=== PATIENT | female | born 2000 | race Caucasian/White ===

== ENCOUNTER 2022-02-24 20:41 | Emergency (ER) | payer OTHER, SELFPAY ==
[2022-02-24 20:43] VITALS: BP 110/47; PULSE 80; RESP 18; TEMP 36.6; O2SAT 100; BMI 20.5
--- NOTE | 2022-02-24 20:56 | CT_ITS ---
EXAM: CT HEAD WITHOUT INTRAVENOUS CONTRAST CLINICAL INDICATION: trauma TECHNIQUE: Multiple axial images were obtained of the head without intravenous contrast. CTDIvol = ( 44.99 ) mGy, DLP = ( 779.24 ) mGycm This CT exam was performed using one or more of the following dose reduction techniques: automated exposure control, adjustment of the mA and/or kV according to patient size, and/or use of iterative reconstruction technique. This report was created using [employer] report generation technology. COMPARISON: None. FINDINGS: BRAIN AND EXTRA-AXIAL SPACES: Unremarkable. No intra- or extra-axial hemorrhage. No evidence of acute infarct. No intracranial mass or mass effect. There is preservation of the garcia/white matter interface. Posterior fossa structures are unremarkable. Ventricles are appropriate for age. No hydrocephalus. Basal cisterns are patent. BONES/JOINTS: Unremarkable. No discrete lytic or blastic abnormalities. SINUSES: Unremarkable as visualized. Clear. MASTOID AIR CELLS: Unremarkable. Clear. ORBITS: Visualized globes, extraocular muscles, optic nerves and retrobulbar fat appear unremarkable. CT/Brain/Head without Contrast IMPRESSION: Negative head/brain CT without intravenous contrast. Electronically Signed: Dedrick Pugh MD at 21:55 EDT ,
--- NOTE | 2022-02-24 20:56 | RAD_ITS ---
EXAM: XR THORACIC SPINE, 2 VIEWS CLINICAL INDICATION: trauma TECHNIQUE: Frontal and lateral views of the thoracic spine. This report was created using [employer] report generation technology. COMPARISON: None. FINDINGS: VERTEBRAE: Mild S-shaped curvature of the spine. Preserved vertebral body height. No fracture. No spondylolisthesis. No significant facet arthropathy. DISC SPACES: Unremarkable. Disc spaces are maintained. RAD/Thoracic Spine 2 Views IMPRESSION: No acute or healing fracture or malalignment. Electronically Signed: Dedrick Pugh MD at 22:27 EDT ,
--- NOTE | 2022-02-24 20:56 | CT_ITS ---
EXAM: CT CERVICAL SPINE WITHOUT INTRAVENOUS CONTRAST CLINICAL INDICATION: trauma TECHNIQUE: Helically acquired images were obtained of the cervical spine without intravenous contrast. 2D reformatted images were reviewed. CTDIvol = ( 13.25 ) mGy, DLP = ( 268.79 ) mGycm This CT exam was performed using one or more of the following dose reduction techniques: automated exposure control, adjustment of the mA and/or kV according to patient size, and/or use of iterative reconstruction technique. This report was created using [employer] report [employer] technology. COMPARISON: None. FINDINGS: VERTEBRAE: Unremarkable. No fracture. No traumatic subluxation. No discrete lytic or blastic abnormality. Normal alignment. Normal craniocervical junction and cervicothoracic junction. DISCS/SPINAL CANAL/NEURAL FORAMINA: Unremarkable. Disc heights are preserved. No critical stenosis. SOFT TISSUES: Unremarkable. No prevertebral soft tissue swelling. LYMPH NODES: Unremarkable. No cervical adenopathy. LUNG APICES: Unremarkable as visualized. Clear. CT/Spine Cervical without Contras IMPRESSION: No evidence of acute cervical spinal fracture or spondylolisthesis. Electronically Signed: Dedrick Pugh MD at 21:56 EDT ,
--- NOTE | 2022-02-24 20:56 | RAD_ITS ---
EXAM: XR LUMBOSACRAL SPINE, 2 OR 3 VIEWS CLINICAL INDICATION: trauma TECHNIQUE: Frontal and lateral views of the lumbar spine and sacrum. This report was created using [employer] report [employer] technology. COMPARISON: None. FINDINGS: VERTEBRAE: Unremarkable. Preserved vertebral body height. No fracture. No spondylolisthesis. Preservation of the normal lumbar lordosis. No significant facet arthropathy. DISC SPACES: No acute findings. Disc spaces are maintained. GASTROINTESTINAL TRACT: Unremarkable as visualized. Included bowel gas pattern is non-obstructive. RAD/Lumbar Spine 2 or 3 Views IMPRESSION: No evidence of lumbar spinal fracture or spondylolisthesis. Electronically Signed: Dedrick Pugh MD at 22:26 EDT ,
--- NOTE | 2022-02-24 21:00 | EDS_ITS ---
HPI HPI - Fall History of Present Illness Chief Complaint: Trauma Detail of Chief Complaint: Thrown from a horse to concrete. Informant: patient and friend Occured/Mechanism Occurred: Today and Hours Fall from Height (ft): From on top of a horse probably 4 to 6 feet in the air. Usually ambulates: Without assistance Pain/Injury Pain Location: head and back Quality of Pain: Sharp and Aching Current Severity: Moderate Maximum Severity: Moderate Associated Symptoms Associated Symptoms: Positive for Loss of consciousness; Negative for Parasthesias, Weakness, Loss of function, Inability to ambulate or Amnesia Narrative Narrative: 19-year-old female no significant past medical or surgical history. 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 The horse got spooked and is they were coming out of the river the horse bucked and threw her off backwards on the concrete. Patient states she landed on her lower back. She stood up she said she was dazed she walks several feet and then fell like she was going to pass out and went to the ground. She said she woke up and walked again and felt like she might pass out again but did not. She is complaining primarily of pain in the back of her scalp and her lower thoracic spine and posterior rib cage. She denies any chest or abdominal pain. She is not on blood thinners. She has no weakness or numbness in her upper or lower extremities. She took 3 ibuprofen prior to arrival. Prior similar symptoms: No Recent Illness/Hospitalization: No PFSH PFSH Medical History no medical history no medical history Home Medications hydrocodone-acetaminophen 5-325mg 5mg-325mg 1 tab PO Q4H PRN pain 3 days #14 t abs 02/24/22 [Rx Last Taken Unknown] Allergy/AdvReac Type Severity Reaction Status Date / Time No Known Allergies Allergy Verified 02/24/22 20:44 Family History no significant family his Surgical History no surgical history no surgical history Social History Smoking Status: Never smoker ROS ROS ED ROS Narrative Denies recent illness. Review of Systems ROS Unobtainable: Denies due to encephalopathy Constitutional Constitutional ED: Denies chills Eyes Eyes: Denies blurry vision ENT ENT ED: Denies ear pain Cardiovascular Cardiovascular: Denies chest pain Respiratory/Chest Respiratory/Chest: Denies cough Gastrointestinal Gastrointestinal: Denies abdominal pain Genitourinary Genitourinary ED: Denies dysuria Musculoskeletal Musculoskeletal: Denies arthralgias Integumentary Denies abscess Neurologic Neurologic: Reports headache(s) Psychiatric Psychiatric: Denies anxiety Endocrine Endocrinology: Denies polydipsia Hematologic/Lymphatic Hematologic/Lymphatic: Denies easy bleeding Allergic/Immunologic Allergic/Immunologic ED: Denies mouth swelling or tongue swelling EXAM Physical Exam Narrative Exam Narrative: 21-year-old female standing at bedside using her arms to brace herself from actually sitting on the bed. Appears to be in pain. Vital signs are stable afebrile. Pulse ox 100% on room air no signs hypoxia. H EENT exam pupils are reactive light his motions are intact. She has no trauma to her face or dentition. She has an area of tenderness in her posterior lower scalp. No severe hematoma. No laceration. Neck nontender. Trachea midline. Lungs clear to auscultation bilaterally. Heart regular rhythm rate about 80 no murmur. Chest were nontender. Abdomen soft nontender. Pelvic girdle intact. 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 Dorsi plantarflexion intact. Both upper and lower extremities are nontender without deformity. Back she has tenderness in her lower thoracic spine upper lumbar spine and posterior lower rib cage bilaterally. There is currently no ecchymosis or bruising. Neurologically she is awake and alert. She remembers the incident. There is not time of amnesia when she passed out. She is acting appropriately. Answering questions and following commands. GCS of 15. She has no weakness or numbness to either upper or lower extremities. Const Vital Signs: 02/24/22 20:43 Temperature 97.9 F Temperature Source Temporal Pulse Rate 80 Respiratory Rate 18 Blood Pressure 110/47 L Blood Pressure Mean 68 Pulse Ox 100 Oxygen Delivery Method Room Air Positive well nourished and well developed; Negative for obese, cachectic, contractures or unkempt General Appearance ED: well developed; Negative for unkempt, cachectic or contractures Nutritional Appearance: Negative for cachectic or obese HEENT Reports normocephalic HEENT Narrative: Tenderness posterior scalp. No hematoma nor laceration. trauma, contusion and tenderness; Negative for hematoma Eyes PERRL and EOMs intact bilaterally General Eye ED: Negative for pale conjunctiva or scleral icterus Neck No full ROM, no lymphadenopathy and supple General: Negative for tenderness or other Chest Wall inspection of chest normal and palpation of chest normal Chest: Negative for other Resp normal respiratory effort, no retractions and clear to auscultation bilaterally Auscultation: Negative for rales, rhonchi or wheezes Cardio regular rate, regular rhythm, S1 normal heart sound, S2 normal heart sound and no murmurs Rate: Negative for bradycardia or tachycardic Rhythm: Negative for abnormal rhythm GI non-tender, non-distended and no masses Inspection: Negative for abdominal distention Auscultation: normoactive bowel sounds Palpation: soft; Negative for guarding or rebound tenderness present Back/Spine no CVA tenderness Back/Spine Narrative: Posterior bilateral lower rib cage tenderness crepitance or subcu air. No gross bony deformities. General Back: Negative for CVA tenderness Cervical Spine: Negative for cervical spine tenderness Thoracic Spine / Upper Back: ROM limited and thoracic spinal tenderness Lumbar Spine / Lower Back: lumbar spinal tenderness and paraspinal muscle tenderness Neuro oriented x3, CN's II-XII intact bilaterally, moves all extremities, no focal motor deficits and no sensory deficits noted Benson Coma Scale: document GCS findings Spontaneous Obeys Commands Oriented 15 Sensorium / Orientation: alert, oriented to person, oriented to place and oriented to time; Negative for orientation impaired, confused, lethargic or stuporous Motor Exam: strength 5/5 throughout; Negative for general weakness or strength abnormal Psych Appearance: Negative for unkempt Skin Lesions: no lesions Rashes: no rashes Trauma: Negative for abrasion MDM MDM MDM Narrative Medical decision making narrative: 21-year-old healthy female bucked off the back of a horse onto cement and then had loss of consciousness after she got up and began walking. Complaining of posterior scalp and back and posterior rib pain. IV will be started should be given morphine and Zofran. CAT scan of her head and neck. Chest x-ray along with thoracic and lumbar spine x-rays. Repeat exam patient doing much better 10:40 PM. On repeat exam her chest and abdomen totally benign. Her neurologic exam remains normal. She has an abrasion and contusion to her left foot and small toe but does not want that x- rayed. She also has a developing bruise on her left mid to lower back. I went over the CAT scan reads with her and her friend at bedside and also went over the x-rays with them. Patient received another dose of IV morphine and Toradol here. Discharged home with a prescription of [place]. Radiography Diagnostic Testing: Clinical Impression(s) from Imaging Studies Brain CT 02/24/22 20:56 IMPRESSION: Negative head/brain CT without intravenous contrast. Electronically Signed: Dedrick Pugh MD at 21:55 EDT , Cervical Spine CT 02/24/22 20:56 IMPRESSION: No evidence of acute cervical spinal fracture or spondylolisthesis. Electronically Signed: Dedrick Pugh MD at 21:56 EDT Reading Location ID and State: [id number] / [employer] , Service support , Lumbar Spine X-Ray 02/24/22 20:56 IMPRESSION: No evidence of lumbar spinal fracture or spondylolisthesis. Electronically Signed: Dedrick Pugh MD at 22:26 EDT Reading Location ID and State: [id number] / [employer] , Service support , Thoracic Spine X-Ray 02/24/22 20:56 IMPRESSION: No acute or healing fracture or malalignment. Electronically Signed: Dedrick Pugh MD at 22:27 EDT , Chest X-Ray 02/24/22 21:23 IMPRESSION: No radiographic evidence of acute cardiopulmonary disease. Electronically Signed: Dedrick Pugh MD at 22:24 EDT Reading Location ID and State: [id number] / [employer] , Service support , Discharge Plan Triage Chief Complaint: Trauma ED Provider: Rustam Moses Dx/Rx/DC Orders Clinical Impression: Animal-rider injured by fall from or being thrown from horse in noncollision accident, initial encounter, Closed head injury, Back contusion Instructions: ED Back Contusion, ED Head Injury (Adult), ED Contusion, Rib Prescriptions: New hydrocodone-acetaminophen 5-325 mg tablet 1 tab PO Q4H PRN (Reason: pain) 3 Days Qty: 14 0RF Primary Care Provider: Care Physician,No Primary Referrals: Jay Clarke MD [STAFF PHYSICIAN] - As Needed NOT,DEFINED [NON-STAFF] - Activity Restrictions/Additional Instructions: Ice to all sore areas 30 minutes at a time at least 5 times a day the next 3 days. That will decrease pain, swelling and bruising. Motrin for pain and swelling. Tylenol for pain. Do not use Tylenol if you are using the [place] because [place] has Tylenol in it. The [place] is a narcotic pain medication. Do not drink alcohol or drive when using it. Make sure you are drinking plenty of fluids and fiber in your diet to prevent constipation from the pain medication. Follow-up if not improving or return if worse. Understand you are going to be very sore and stiff the next several days. Saturday and Saturday should be the worst 2 days and then should progressively start improving. To have back soreness though the next 1 to 2 weeks. If not improving we may have to get more advanced imaging such as a CAT scan or MRI. But all your films tonight were negative. Do not resume horseback riding or strenuous exercise until you are feeling a lot better. Disposition Disposition: Home, Self Care
[2022-02-24] MEDS: Ondansetron 4 MG/2 ML Vial IV (21:13)
[2022-02-24] MEDS: Morphine 4 MG/ML Syringe 6 MG IV (21:13)
--- NOTE | 2022-02-24 21:23 | RAD_ITS ---
EXAM: XR CHEST, 2 VIEWS CLINICAL INDICATION: trauma TECHNIQUE: Frontal and lateral views of the chest. This report was created using [employer] report generation technology. COMPARISON: None. FINDINGS: LUNGS AND PLEURAL SPACES: Unremarkable. No consolidation or edema. No pneumothorax. No effusion. HEART: Unremarkable. Cardiac silhouette not enlarged. MEDIASTINUM: Central airways and mediastinal contour are unremarkable. BONES/JOINTS: Unremarkable. SOFT TISSUES: Unremarkable. RAD/Chest PA and Lateral IMPRESSION: No radiographic evidence of acute cardiopulmonary disease. Electronically Signed: Dedrick Pugh MD at 22:24 EDT ,
[2022-02-24] MEDS: morphine 8 MG/ML Syringe 6 MG IV (22:54)
[2022-02-24] MEDS: Ketorolac 30 MG/ML Syringe IV (22:54)
[2022-02-24 23:00] VITALS: RESP 18; O2SAT 99
== END 2022-02-24 23:05 | disposition home or self-care (01) ==
PROVIDERS: Emergency Provider Emergency Medicine; Visit Provider Emergency Medicine
DX: S09.90XA Unspecified injury of head, initial encounter (principal); S20.229A Contusion of unspecified back wall of thorax, initial encounter; V80.919A Animal-rider injured in unspecified transport accident, initial encounter
CPT/HCPCS: 70450; 71046; 72070; 72100; 72125; 96374; 96375; 96376; 99283; A4216; J2405